=== PATIENT | male | born 1980 | race Caucasian/White ===

== ENCOUNTER 2018-09-24 05:33 | Day surgery (SDC) | payer OTHER ==
[2018-09-24] MEDS: LACTATED RINGER'S 1,000 ML IV* (06:14)
[2018-09-24] MEDS ORDERED: THROMBIN (BOVINE) 5,000 UNIT VIAL TP (06:47)
[2018-09-24] MEDS ORDERED: GELATIN SIZE 100 SPONGE (06:47)
[2018-09-24] MEDS ORDERED: MIDAZOLAM 1 MG/ML 2 ML INJ (06:49)
[2018-09-24] MEDS: CEFAZOLIN 2 GM/50 ML (PMX) 50 ML IVPB (06:50)
[2018-09-24] MEDS ORDERED: PROPOFOL 20 ML ×2 (06:55→07:49)
[2018-09-24] MEDS ORDERED: ROCURONIUM 50 MG INJ (06:55)
[2018-09-24] MEDS ORDERED: FENTAnyl 50 MCG/ML VIAL (06:56)
[2018-09-24] MEDS ORDERED: METOCLOPRAMIDE 10 MG INJ (06:56)
[2018-09-24] MEDS ORDERED: ONDANSETRON 4 MG INJ (06:56)
[2018-09-24] MEDS ORDERED: DEXAMETHASONE 4 MG/ML 5 ML INJ (07:15)
[2018-09-24] MEDS ORDERED: HYDROmorphONE 2 MG/ML SYG (07:29)
[2018-09-24] MEDS ORDERED: DIPHENHYDRAMINE 50 MG INJ IV (07:30)
[2018-09-24] MEDS ORDERED: FENTAnyl 50 MCG/ML VIAL IV ×3 (07:30)
[2018-09-24] MEDS ORDERED: MEPERIDINE 25 MG INJ IV (07:30)
[2018-09-24] MEDS: BUPIVACAINE 0.25% (MPF) 30 ML INJ (07:37)
[2018-09-24] MEDS: POLYMYXIN/BACITRACIN 1L IRRIG (07:37)
[2018-09-24] MEDS ORDERED: NEOSTIGMINE 3 MG/3 ML SYRINGE (08:17)
[2018-09-24] MEDS ORDERED: GLYCOPYRROLATE 0.4 MG INJ (08:17)
[2018-09-24] MEDS ORDERED: ONDANSETRON 4 MG INJ IV (09:00)
[2018-09-24] MEDS: HYDROmorphONE 1 MG/5 ML IV SYRINGE IV ×5 (09:00→09:40)
[2018-09-24] MEDS: ONDANSETRON 4 MG INJ IV (09:01)
[2018-09-24] MEDS: LACTATED RINGER'S 1,000 ML IV (09:44)
[2018-09-24] MEDS: OXYCODONE/ACETAMINOPHEN (5/325) TAB PO ×2 (09:48→15:40)
== END 2018-09-24 14:55 | disposition home or self-care (01) ==
LOC: REC 05:33 → SDS 05:33
DX: M51.26 Other intervertebral disc displacement, lumbar region (principal)
CPT/HCPCS: 63030; 72020; 86850; 86900; 86901; 86920; 88304; 97110; 97116; 97161; 97530